=== PATIENT | female | born 1960 | race Caucasian/White ===

== ENCOUNTER → 2018-06-05 | Outpatient (CLI) | payer OTHER, MEDICARE ==
[~2018-06-05] MED LIST: ASPI-515 PO; ATEN50TA41 PO; CALC500T93 PO; CHOL2000 PO; CYCL1DRO EACHEYE; RALO60TA PO; ROSU10TA PO; TOLT2TAB4 PO; Vitamin B 12 PO; [UNRECOGNIZED DRUG - CODE] INJ; [UNRECOGNIZED DRUG - OTHER] TL
== END | disposition home or self-care (01) ==
LOC: STAR 08:55
PROVIDERS: ATTEND Orthopaedic Surgery
DX: Z01.818 Encounter for other preprocedural examination (principal); M19.011 Primary osteoarthritis, right shoulder
CPT/HCPCS: 87081; 93005

== ENCOUNTER 2018-06-11 06:04 | Inpatient (IN) | payer OTHER, MEDICARE ==
[~2018-06-11] VITALS: Ht 167.6 cm; Wt 116.7 kg
[2018-06-11] MEDS ORDERED: BUPIVACAINE/PF 0.25% ONE (07:15)
[2018-06-11] MEDS ORDERED: EPINEPHRINE TOPICAL SOLN 1 MG/ML, 30ML ONE (07:15)
[2018-06-11] MEDS ORDERED: EPINEPHRINE 1 MG/ML, 1ML ONE ×2 (07:15→07:19)
[2018-06-11] MEDS ORDERED: FENTANYL PF 100 MCG/2ML ONE ×4 (07:18→14:05)
[2018-06-11] MEDS ORDERED: MIDAZOLAM 1 MG/ML, 2ML ONE (07:19)
[2018-06-11] MEDS ORDERED: LACTATED RINGERS 1,000 ML IV SCH (07:19)
[2018-06-11] MEDS ORDERED: BUPIVACAINE/PF 0.5% ONE (07:19)
[2018-06-11] MEDS ORDERED: GABAPENTIN 300 MG CAPSULE PO ONE (07:30)
[2018-06-11] MEDS ORDERED: ACETAMINOPHEN 500 MG TABLET PO ONE (07:30)
[2018-06-11] MEDS ORDERED: PROPOFOL 10 MG/ML, 20ML ONE (07:33)
[2018-06-11] MEDS ORDERED: ROCURONIUM 10MG/ML,5ML ONE (07:45)
[2018-06-11] MEDS ORDERED: DIPHENHYDRAMINE 50 MG/ML, 1ML IVPush PRN (09:00)
[2018-06-11] MEDS ORDERED: LORazepam 2 MG/ML, 1ML IVPush PRN (09:00)
[2018-06-11] MEDS ORDERED: hydrALAzine 20 MG/ML, 1ML IV PRN (09:00)
[2018-06-11] MEDS ORDERED: ALBUTEROL SULFATE 2.5 MG/3 ML NPPB PRN (09:00)
[2018-06-11] MEDS ORDERED: MORPHINE SULFATE 4 MG/ML, 1ML IVPush PRN (09:00)
[2018-06-11] MEDS ORDERED: HYDROmorphone 2 MG/ML, 1ML IVPush PRN (09:00)
[2018-06-11] MEDS ORDERED: SCOPOLAMINE PATCH, 1.5MG PATCH.TD72 TD PRN (09:00)
[2018-06-11] MEDS ORDERED: OXYcodone 5 MG/5 ML ORAL.SOL UDC PO PRN (09:00)
[2018-06-11] MEDS ORDERED: MEPERIDINE/PF 25MG/0.5ML IVPush PRN (09:00)
[2018-06-11] MEDS ORDERED: METOPROLOL 1 MG/ML, 5ML IV PRN (09:00)
[2018-06-11] MEDS ORDERED: ONDANSETRON 2MG/ML, 2ML ONE (09:15)
[2018-06-11] MEDS ORDERED: NEOSTIGMINE 1 MG/ML, 10ML ONE (09:15)
[2018-06-11] MEDS ORDERED: KETOROLAC 30 MG/1 ML ONE (09:15)
[2018-06-11] MEDS ORDERED: GLYCOPYRROLATE 0.2MG/1ML, 5ML ONE (09:15)
[2018-06-11] MEDS ORDERED: METOCLOPRAMIDE 5 MG/ML, 2ML ONE (09:15)
[2018-06-11] MEDS ORDERED: PHENYLEPHRINE 10 MG/ML ONE (09:15)
[2018-06-11] MEDS ORDERED: SUCCINYLCHOLINE 20 MG/ML, 10ML ONE (09:15)
[2018-06-11] MEDS ORDERED: CLINDAMYCIN 150 MG/ML, 6ML ONE (09:30)
[2018-06-11] MEDS ORDERED: DEXAMETHASONE 4 MG/ML, 1ML ONE ×2 (09:45)
[2018-06-11] MEDS ORDERED: BUPIVACAINE 0.25% ONE (11:58)
[2018-06-11] MEDS ORDERED: OXYcodone 5 MG/5 ML ORAL.SOL UDC ONE (13:07)
[2018-06-11] MEDS: FENTANYL PF 100 MCG/2ML IV PRN ×2 (13:09→14:06)
[2018-06-11] MEDS ORDERED: HALOPERIDOL 5 MG/ML ONE (13:39)
[2018-06-11] MEDS ORDERED: HALOPERIDOL 5 MG/ML IV PRN (14:00)
[2018-06-11] MEDS ORDERED: SENNA/DOCUSATE TABLET PO PRN (16:30)
[2018-06-11] MEDS ORDERED: DIAZEPAM 5 MG TABLET PO PRN (16:30)
[2018-06-11] MEDS ORDERED: ONDANSETRON 2MG/ML, 2ML IV PRN (16:30)
[2018-06-11] MEDS ORDERED: POTASSIUM CHLORIDE 10 MEQ in D5%-0.45% NACL 1,000 ML IV SCH (16:30)
[2018-06-11] MEDS ORDERED: HYDROcodone/APAP 5/325 TABLET PO PRN (16:30)
[2018-06-11] MEDS ORDERED: DIPHENHYDRAMINE 25 MG CAPSULE PO PRN (16:30)
[2018-06-11] MEDS ORDERED: ALUMINUM/MAG/SIMETHICONE 30 ML UDC PO PRN (16:30)
[2018-06-11] MEDS ORDERED: BISACODYL 10 MG SUPP PR PRN (16:30)
[2018-06-11] MEDS ORDERED: MAGNESIUM HYDROXIDE 8%, 30ML UDC PO PRN (16:30)
[2018-06-11] MEDS: morphine SULFATE 10 MG/ML, 1ML IV PRN (17:16)
[2018-06-11] MEDS: CLINDAMYCIN PMX 900MG/50ML 50 ML IVPB SCH (18:31)
[2018-06-11 20:35] VITALS: BP 96/64
[2018-06-11] MEDS ORDERED: ATORVASTATIN 10 MG TABLET PO SCH (21:00)
[2018-06-11] MEDS: OPTH OP SCH (21:00)
[2018-06-11] MEDS: [UNRECOGNIZED DRUG - OTHER] OP SCH (21:00)
[2018-06-11] MEDS: RESTASIS EYE DROPS OP SCH (21:00)
[2018-06-11] MEDS: SODIUM CHLORIDE FLUSH 10ML SYR IVF SCH (21:00)
[2018-06-11] MEDS: DOCUSATE 100 MG CAPSULE PO SCH (21:05)
[2018-06-11] MEDS: PROMETHAZINE 25 MG/ML, 1ML IM PRN (21:35)
[2018-06-11] MEDS ORDERED: OMEP20TA62 PO (21:44)
[2018-06-11 23:38] VITALS: BP 121/81
[2018-06-12] MEDS: CLINDAMYCIN PMX 900MG/50ML 50 ML IVPB SCH (02:23)
[2018-06-12] MEDS: morphine SULFATE 10 MG/ML, 1ML IV PRN ×2 (02:43→09:29)
[2018-06-12 03:11] VITALS: BP 109/69
[2018-06-12 05:21] LABS: ALBUMIN 3.6 g/dL (3.4-5.0); ANION GAP 8 mmol/L (5-15); CHLORIDE 111 mmol/L (98-107)
[2018-06-12 05:22] LABS: CREATININE 1.05 mg/dL (0.55-1.02)
[2018-06-12] MEDS ORDERED: ASPIRIN 81 MG TABLET EC PO SCH (06:00)
[2018-06-12] MEDS ORDERED: ATENOLOL 25 MG TABLET PO SCH (06:00)
[2018-06-12 08:08] VITALS: BP 120/76
[2018-06-12] MEDS: PROMETHAZINE 25 MG/ML, 1ML IM PRN (08:18)
[2018-06-12] MEDS: OXYcodone/APAP 5/325MG TABLET PO PRN ×2 (08:26→08:36)
[2018-06-12] MEDS: DOCUSATE 100 MG CAPSULE PO SCH (08:32)
[2018-06-12] MEDS: [UNRECOGNIZED DRUG - OTHER] OP SCH (08:34)
[2018-06-12] MEDS: OPTH OP SCH (08:34)
[2018-06-12] MEDS: RESTASIS EYE DROPS OP SCH (08:34)
[2018-06-12] MEDS: SODIUM CHLORIDE FLUSH 10ML SYR IVF SCH (08:36)
[2018-06-12] MEDS ORDERED: OMEPRAZOLE 20 MG CAPSULE.DR PO SCH (09:00)
[2018-06-12] MEDS ORDERED: RALOXIFENE 60 MG TABLET PO SCH (09:00)
[2018-06-12] MEDS ORDERED: TOLTERODINE 2MG TABLET PO SCH (09:00)
[2018-06-12] MEDS ORDERED: CALCIUM CARBONATE 500 MG TAB.CHEW PO SCH (09:00)
[2018-06-12] MEDS ORDERED: OXYC5TAB3 PO (09:24)
[2018-06-12] MEDS ORDERED: ONDA4TAB7 PO (09:31)
[2018-06-12] MEDS ORDERED: DOCU-131 PO (09:32)
== END 2018-06-12 10:10 | disposition home or self-care (01) | DRG 483 ==
LOC: ORIP 06:04 → 4NOR 15:47 → DCLOUNGE 06-12 09:55
PROVIDERS: ADMIT Orthopaedic Surgery; ATTEND Orthopaedic Surgery
PROC: 0RRJ00Z Replacement of Right Shoulder Joint with Reverse Ball and Socket Synthetic Substitute, Open Approach (ICD-10-PCS; principal; 2018-06-11 08:30)
DX: M75.121 Complete rotator cuff tear or rupture of right shoulder, not specified as traumatic (principal); J45.909 Unspecified asthma, uncomplicated; K21.9 Gastro-esophageal reflux disease without esophagitis; M81.0 Age-related osteoporosis without current pathological fracture; G47.00 Insomnia, unspecified; M06.9 Rheumatoid arthritis, unspecified; M12.811 Other specific arthropathies, not elsewhere classified, right shoulder; Z88.8 Allergy status to other drugs, medicaments and biological substances; Z88.2 Allergy status to sulfonamides; Z88.1 Allergy status to other antibiotic agents; Z90.710 Acquired absence of both cervix and uterus; Z90.89 Acquired absence of other organs
CPT/HCPCS: 36415; 73030; J3490; S0077; 80048; 82040; 85014; 85018; C1713; C1776; G0378; J0171; J1100; J1885; J2250; J2405; J2550; J2704; J2710; J3010; J3480; J0330; J1630; J2270; J2370; J2765; J7120

== ENCOUNTER → 2018-12-04 | Outpatient (CLI) | payer OTHER, MEDICARE ==
[~2018-12-04] MED LIST changes: +DOCU-131 PO; +OMEP20TA62 PO; +ONDA4TAB7 PO; +OXYC5TAB3 PO; +PRAM0.125 PO; -ROSU10TA PO; +ROSU10TA2 PO
[2018-12-04 09:49] LABS: INTERNATIONAL NORMALIZED RATIO 1.05 (0.93-1.1)
[2018-12-04 09:58] LABS: ANION GAP 7 mmol/L (5-15); CALCIUM 8.8 mg/dL (8.5-10.1); CHLORIDE 112 mmol/L (98-107); CREATININE 0.97 mg/dL (0.55-1.02)
[2018-12-04 10:04] LABS: HEMOGLOBIN A1C 5.9 % (4.2-6.3)
[2018-12-04 10:08] LABS: MD NO
[2018-12-04 10:09] LABS: BASOPHILS # (AUTO) 0.06 x10^3/uL (0-0.1); BASOPHILS % (AUTO) 1 % (0-1); EOSINOPHILS # (AUTO) 0.67 x10^3/uL (0-0.4); EOSINOPHILS % (AUTO) 10 % (1-7); LYMPHOCYTES % (AUTO) 27 % (22-44); MEAN CORPUSCULAR HEMOGLOBIN 26.9 pg (27.0-34.8); MEAN CORPUSCULAR HGB CONC 31.9 g/dL (32.4-35.8); MEAN CORPUSCULAR VOLUME 84.4 fL (80-100); MEAN PLATELET VOLUME 9.6 fL (7.4-10.4); MONOCYTES # (AUTO) 0.62 x10^3/uL (0.2-0.8); MONOCYTES % (AUTO) 9 % (2-9); NEUTROPHILS # (AUTO) 3.46 x10^3/uL (1.8-6.8); NEUTROPHILS % (AUTO) 52 % (42-75); PLATELET COUNT 199 x10^3/uL (130-400); RED BLOOD COUNT 4.57 x10^6/uL (3.82-5.3); RED CELL DISTRIBUTION WIDTH 16.6 % (9.6-15.2)
== END | disposition home or self-care (01) ==
LOC: STAR 08:47
PROVIDERS: ATTEND Orthopaedic Surgery
DX: Z01.818 Encounter for other preprocedural examination (principal); M17.12 Unilateral primary osteoarthritis, left knee; R94.31 Abnormal electrocardiogram [ECG] [EKG]
CPT/HCPCS: 36415; 80048; 83036; 85025; 85610; 85730; 87081; 93005

== ENCOUNTER 2020-05-28 08:29 | Emergency (ER) | payer MEDICARE, OTHER ==
[~2020-05-28] VITALS: Ht 167.6 cm; Wt 113.4 kg
[~2020-05-28 08:29] MED LIST changes: +ASPI81TA45 PO; +MELO7.5T31 PO; +OXYC5CAP2 PO; +TERI2.4P INJ; +TRAM50TA2 PO
[2020-05-28 09:21] LABS: BASOPHILS % (AUTO) 1 % (0-1); EOSINOPHILS % (AUTO) 3 % (1-7); LYMPHOCYTES % (AUTO) 16 % (22-44); MEAN CORPUSCULAR HEMOGLOBIN 28.9 pg (27.0-34.8); MEAN CORPUSCULAR HGB CONC 32.5 g/dL (32.4-35.8); MEAN PLATELET VOLUME 9.8 fL (7.4-10.4); MONOCYTES % (AUTO) 12 % (2-9); NEUTROPHILS % (AUTO) 69 % (42-75); PLATELET COUNT 250 x10^3/uL (130-400); RED BLOOD COUNT 5.03 x10^6/uL (3.82-5.3); RED CELL DISTRIBUTION WIDTH 15.6 % (9.6-15.2)
[2020-05-28 09:25] LABS: MD NO
[2020-05-28] MEDS ORDERED: PROPOFOL 10 MG/ML, 100ML IV ONE (09:30)
[2020-05-28] MEDS ORDERED: SODIUM CHLORIDE FLUSH 10ML SYR IVF ONE (09:30)
[2020-05-28 09:34] LABS: ALBUMIN 3.7 g/dL (3.4-5.0); ANION GAP 6 mmol/L (5-15); CALCIUM 9.3 mg/dL (8.5-10.1); CHLORIDE 114 mmol/L (98-107)
[2020-05-28] MEDS ORDERED: PROPOFOL 10 MG/ML, 20ML ONE (09:56)
[2020-05-28] MEDS ORDERED: ONDANSETRON 2MG/ML, 2ML ONE (10:08)
[2020-05-28] MEDS ORDERED: RIVAROXABAN 20 MG TABLET ONE (10:47)
[2020-05-28 10:51] VITALS: BP 144/75
[2020-05-28] MEDS ORDERED: RIVAROXABAN 20 MG TABLET PO ONE (11:00)
== END 2020-05-28 11:03 | disposition home or self-care (01) ==
LOC: ED 09:57
DX: I48.91 Unspecified atrial fibrillation (principal); R07.9 Chest pain, unspecified
CPT/HCPCS: 36415; 71045; 80048; 82040; 84443; 85025; 92960; 93005; 99152; 99153; 99285; 99406

== ENCOUNTER 2020-11-24 01:19 | Emergency (ER) | payer MEDICARE ==
[~2020-11-24] VITALS: Ht 167.6 cm; Wt 113.5 kg
[~2020-11-24 01:19] MED LIST changes: -ASPI-515 PO; +ASPI-963 PO; -OXYC5TAB3 PO; +OXYC5TAB98 PO
--- NOTE | 2020-11-24 01:37 | NUR ---
Patient presents to ER c/o left knee pain after a mechanical GLF x1 hr ago. Patient has a hx of bilat knee replacements. Patient takes blood thinners. Denies head trauma or LOC. Patient is in obvious discomfort. Respirations even and unlabored.
[2020-11-24] MEDS ORDERED: HYDROcodone/APAP 5/325 TABLET ONE (01:47)
[2020-11-24] MEDS ORDERED: ONDANSETRON ODT 4 MG ONE (01:47)
--- NOTE | 2020-11-24 01:53 | NUR ---
Meds admin per aug. Assisted patient to BR via wheelchair.
[2020-11-24] MEDS ORDERED: HYDROcodone/APAP 5/325 TABLET PO ONE (02:00)
[2020-11-24] MEDS ORDERED: ONDANSETRON ODT 4 MG PO ONE (02:00)
[2020-11-24] MEDS ORDERED: OMEPRAZOLE 20 MG CAPSULE.DR ONE (02:05)
--- NOTE | 2020-11-24 02:09 | NUR ---
Patient to XR.
[2020-11-24] MEDS ORDERED: OMEPRAZOLE 20 MG CAPSULE.DR PO ONE (02:30)
--- NOTE | 2020-11-24 03:17 | NUR ---
PT LAYING IN BED, A/OX4, ALL NEEDS IN REACH, CALL LIGHT IN REACH, AND, VITAL SIGNS STABLE
[2020-11-24 04:55] VITALS: BP 137/95
== END 2020-11-24 04:57 | disposition home or self-care (01) ==
LOC: ED 01:46
DX: S80.02XA Contusion of left knee, initial encounter (principal); I48.91 Unspecified atrial fibrillation; Z87.891 Personal history of nicotine dependence; W18.30XA Fall on same level, unspecified, initial encounter; Y93.89 Activity, other specified; Y92.009 Unspecified place in unspecified non-institutional (private) residence as the place of occurrence of the external cause; Y99.8 Other external cause status
CPT/HCPCS: 29505; 73564; 73590; 99284; Q0162

== ENCOUNTER 2020-12-03 15:34 | Emergency (ER) | payer SELFPAY ==
[~2020-12-03] VITALS: Ht 167.6 cm; Wt 112.1 kg
--- NOTE | 2020-12-03 16:19 | NUR ---
First contact with pt. Pt reports that 11/24/20 she fell onto her L knee. Since then she has had increasing bruising and swelling over L knee and down LLE. Pt reports she was seen here after her fall and had xrays which were negative. Pt reports she is currently taking xarelto for a.fib. CMS in LLE intact. Pt is able to walk and bear weight without difficulty.
[2020-12-03 16:56] LABS: BASOPHILS % (AUTO) 1 % (0-1); EOSINOPHILS % (AUTO) 3 % (1-7); LYMPHOCYTES % (AUTO) 11 % (22-44); MEAN CORPUSCULAR HEMOGLOBIN 32.5 pg (27.0-34.8); MEAN CORPUSCULAR HGB CONC 33.9 g/dL (32.4-35.8); MEAN PLATELET VOLUME 9.9 fL (7.4-10.4); MONOCYTES % (AUTO) 16 % (2-9); NEUTROPHILS % (AUTO) 69 % (42-75); PLATELET COUNT 211 x10^3/uL (130-400); RED CELL DISTRIBUTION WIDTH 15.4 % (9.6-15.2)
[2020-12-03 17:08] LABS: INTERNATIONAL NORMALIZED RATIO 1.09 (0.93-1.1); PROTHROMBIN TIME 11.6 Seconds (9.6-11.5)
[2020-12-03 17:09] LABS: ANION GAP 7 mmol/L (5-15); CHLORIDE 113 mmol/L (98-107); CREATININE 0.94 mg/dL (0.55-1.02)
[2020-12-03] MEDS ORDERED: OMNIPAQUE 350 MG/ML, 150 ML BOTTLE ONE (18:02)
--- NOTE | 2020-12-03 18:03 | NUR ---
PT BACK FROM CT AT THIS TIME. PT IN [place] AND DENIES ANY NEEDS
[2020-12-03] MEDS ORDERED: CLINDAMYCIN 150 MG/ML, 6ML IM ONE (19:00)
[2020-12-03] MEDS ORDERED: CLINDAMYCIN 150 MG/ML, 6ML ONE (19:22)
--- NOTE | 2020-12-03 19:46 | NUR ---
PT D/C WITH D/C SUMMARY AND SCRIPTS. ALL QUESTIONS ANSWERED. PT AMBULATES TO REGISTRATION DESK WITH SLOW BUT STEADY GAIT FOR D/C HOME WITH . PT DENIES ANY OTHER NEEDS PERTAINING TO THIS VISIT.
[2020-12-03 19:47] VITALS: BP 123/56
== END 2020-12-03 19:49 | disposition home or self-care (01) ==
LOC: ED 16:11
DX: S80.02XA Contusion of left knee, initial encounter (principal); S80.12XA Contusion of left lower leg, initial encounter; L03.116 Cellulitis of left lower limb; I48.91 Unspecified atrial fibrillation; M06.9 Rheumatoid arthritis, unspecified; Z87.891 Personal history of nicotine dependence; Z88.2 Allergy status to sulfonamides; W01.0XXA Fall on same level from slipping, tripping and stumbling without subsequent striking against object, initial encounter; Y93.89 Activity, other specified; Y92.009 Unspecified place in unspecified non-institutional (private) residence as the place of occurrence of the external cause; Y99.8 Other external cause status
CPT/HCPCS: 36415; 73706; 80048; 82040; 85025; 85610; 85730; 93971; 96372; 99285; Q9967; S0077

== ENCOUNTER 2021-01-03 23:57 | Emergency (ER) | payer OTHER ==
[~2021-01-03] VITALS: Ht 167.6 cm; Wt 113.4 kg
[~2021-01-03 23:57] MED LIST changes: +TOLT2TAB PO; -TOLT2TAB4 PO
[2021-01-04 00:58] VITALS: BP 134/82
--- NOTE | 2021-01-04 00:59 | NUR ---
Patient given discharge instructions and they have confirmed that they understand the instructions. Patient ambulatory with steady gait. NAD, all questions answered appropriately, denies additional needs at this time. No personal belongings left in room after discharge.
== END 2021-01-04 01:02 | disposition home or self-care (01) ==
LOC: ED 01-04 00:41
DX: R51.9 Headache, unspecified (principal); B34.9 Viral infection, unspecified; Z20.822 Contact with and (suspected) exposure to COVID-19; I48.91 Unspecified atrial fibrillation; M06.9 Rheumatoid arthritis, unspecified; Z87.891 Personal history of nicotine dependence
CPT/HCPCS: 99283; U0003; U0005